=== PATIENT | female | born 1940 | race Caucasian/White ===

== ENCOUNTER → 2017-05-02 | Outpatient (CLI) | payer OTHER, MEDICARE | LOC: BMCIMAGING 14:10 | PROVIDERS: ATTEND Internal Medicine Rheumatology | DX: Z13.820 Encounter for screening for osteoporosis (principal); M85.80 Other specified disorders of bone density and structure, unspecified site ==

== ENCOUNTER → 2018-07-12 | Outpatient (CLI) | payer OTHER, MEDICARE | LOC: BMCIMAGING 16:06 | PROVIDERS: ATTEND Internal Medicine Rheumatology | DX: M17.0 Bilateral primary osteoarthritis of knee (principal); I70.90 Unspecified atherosclerosis ==

== ENCOUNTER → 2018-08-26 | Outpatient (CLI) | payer OTHER, MEDICARE | LOC: FIMAGING 15:40 | PROVIDERS: ATTEND Physical Medicine & Rehabilitation | DX: M43.8X6 Other specified deforming dorsopathies, lumbar region (principal); M51.36 Other intervertebral disc degeneration, lumbar region; R60.9 Edema, unspecified ==

== ENCOUNTER → 2018-11-20 | Outpatient (CLI) | payer OTHER, MEDICARE | LOC: BMCIMAGING 14:59 | PROVIDERS: ATTEND Physician Assistant | DX: Z13.820 Encounter for screening for osteoporosis (principal); M81.0 Age-related osteoporosis without current pathological fracture; Z78.0 Asymptomatic menopausal state ==

== ENCOUNTER → 2019-02-13 | Outpatient (CLI) | payer OTHER, MEDICARE | LOC: BHFA 14:00 | PROVIDERS: ATTEND Internal Medicine Cardiovascular Disease | DX: I25.10 Atherosclerotic heart disease of native coronary artery without angina pectoris (principal); I10 Essential (primary) hypertension | CPT/HCPCS: 78452; 93017; A9500; J2785 ==

== ENCOUNTER 2019-03-01 08:20 | Day surgery (SDC) | payer OTHER, MEDICARE ==
[2019-03-01] MEDS ORDERED: ASPIRIN EC 325 MG TAB PO ONE ×2 (08:21→08:52)
[2019-03-01] MEDS ORDERED: NS 1,000 ML IV ONE (08:21)
[2019-03-01] MEDS ORDERED: diphenhydrAMINE 25 MG CAP PO ONE ×2 (08:21→08:51)
[2019-03-01] MEDS ORDERED: DIAZEPAM 5 MG TAB PO ONE (08:21)
[2019-03-01] MEDS ORDERED: FAMOTIDINE 20 MG TAB PO ONE (08:21)
[2019-03-01] MEDS ORDERED: FAMOTIDINE 20 MG TAB ONE (08:52)
[2019-03-01 09:19] LABS: PLATELET COUNT 146 10^3/uL (150-400)
[2019-03-01 09:35] LABS: INR 0.98 (0.83-1.16); PROTIME(PATIENT) 12.6 SEC (12.0-15.0)
[2019-03-01] MEDS ORDERED: fentaNYL 100 MCG/2 ML INJ ONE ×3 (10:32→13:06)
[2019-03-01] MEDS ORDERED: MIDAZOLAM 2 MG/2 ML VIAL ONE ×3 (10:32→13:07)
[2019-03-01] MEDS ORDERED: IOPAMIDOL (ISOVUE 370) 100 ML BTL IV ONE (10:33)
[2019-03-01] MEDS ORDERED: HEPARIN 10,000 UNIT/10 ML MDV (1,000 UNIT/ML) ONE (10:33)
[2019-03-01] MEDS ORDERED: VERAPAMIL 5 MG/2 ML VIAL ONE (10:33)
[2019-03-01] MEDS ORDERED: LIDOCAINE 1% 5 ML SDV ONE (10:42)
--- NOTE | 2019-03-01 11:30 | PDPROPOC ---
Sedation Plan of Care Sedation Plan of Care: mental status noted, patient educated of risks, benefits , alternatives, patient can tolerate sedation ASA Classification: ASA 2 Planned drugs: fentanyl, midazolam Mallampati Score: Class 2 Mallampati Reference Image: Patient passed 3-3-2 rule?: Yes
--- NOTE | 2019-03-01 11:30 | PDHPUP ---
History & Physical Update H&P update statement: This history and physical update is based on an assessment of the patient which was completed after admission or registration (within 24 hours), but prior to the surgery/procedure.Pt with known CAD with previous PCI with new anterior inferior defects on nuc stress with new marked decline in EF to 29%. Risks and benefits discussed in detail. Consents signed. H&P update: H&P reviewed & patient examined, no change in patient's condition since H&P completed (Metformin was held)
[2019-03-01] MEDS ORDERED: HYDROCODONE/APAP 5/325 TAB PO PRN (13:17)
[2019-03-01] MEDS ORDERED: ATROPINE SULFATE 1 MG/10 ML SYR IVP PRN (13:17)
[2019-03-01] MEDS ORDERED: NITROGLYCERIN 0.4 MG BTL SL PRN (13:17)
[2019-03-01] MEDS ORDERED: ONDANSETRON 4 MG/2 ML VIAL IVP PRN (13:17)
--- NOTE | 2019-03-01 13:58 | CPIP ---
[f rep st] INVASIVE CARDIAC PROCEDURE DATE OF PROCEDURE: 03/01/2019 PROCEDURE PERFORMED: Left heart catheterization. INDICATION FOR PROCEDURE: Abnormal pharmacologic nuclear stress test demonstrating anterior, as well as inferior ischemia with new reduction in left ventricular function with LVEF of 29% in the setting of known coronary artery disease, including PCI to the LAD and RCA in 2016, with multiple coronary d isease risk factors, also in anticipation of future laminectomy with Dr. Murry. DESCRIPTION OF PROCEDURE: After informed consent was obtained, the patient was brought to the [facility] catheterization lab where she was prepped and draped in sterile fashion. Access was obtained throu gh the left radial artery. Sheath with was placed without complications. An AL1 catheter was used t o cannulate the right coronary artery in multiple projections. AL1 catheter was exchanged over a mauricio dewire for a JL3.5 catheter. JL3 5 catheter was used to take images of the left coronary anatomy in multiple projections. JL3 5 catheter was exchanged over a guidewire for an angled pigtail catheter. Angled pigtail catheter was used to cross the aortic valve. LVEDP was assessed. Left ventriculogra m was performed. Aortic valve gradient was assessed. Angled pigtail catheter was removed over a mauricio dewire. Patient tolerated the procedure well. FINDINGS: 1. Left main normal size and caliber, bifurcates into left anterior descending and left circumflex c oronary artery. There is no evidence of coronary disease within the left main. 2. Left anterior descending artery demonstrates patent stents to the proximal mid portion of the LAD without evidence of stenosis. Mild luminal irregularities in the distal LAD. 3. Circumflex vessel is a nondominant vessel. There is some mild luminal irregularities within the circumflex with no evidence of flow-limiting disease. There is a prominent 1st obtuse marginal branc h with no evidence of coronary disease. 4. The right coronary artery is a dominant vessel, with patent stents to the proximal right coronary artery. The remainder of the RCA is free of coronary artery disease. HEMODYNAMICS: LVEF demonstrates global hypokinesis of 30%. LVEDP elevated 24 mmHg. Aortic valve gr adient none. CONCLUSION: 1. Patent stents to the proximal left anterior descending and right coronary artery. 2. Mild luminal irregularities in the circumflex vessel. 3. No evidence of flow-limiting coronary disease. 4. Nonischemic cardiomyopathy with global hypokinesis with left ventricular ejection fraction of 30% , elevated end-diastolic pressure of 24 mmHg. PLAN: 1. TR band is in place over left radial artery site. Hemostasis has been achieved. 2. Will continue workup to address new onset of nonischemic cardiomyopathy. 3. Note patient in ventricular bigeminy through the entire case. 4. Will follow up next week in the office prior to cardiac clearance for spinal surgery. /[id number]/MODL
== END 2019-03-01 17:47 | disposition home or self-care (01) ==
LOC: FCATH 08:20
PROVIDERS: ATTEND Internal Medicine Cardiovascular Disease
DX: R94.39 Abnormal result of other cardiovascular function study (principal); I42.0 Dilated cardiomyopathy; I25.10 Atherosclerotic heart disease of native coronary artery without angina pectoris; Z95.5 Presence of coronary angioplasty implant and graft; I10 Essential (primary) hypertension
CPT/HCPCS: 93458; C1769; J1644; J2250; J3010; Q9967